=== PATIENT | male | born 1950 | race Caucasian/White ===

== ENCOUNTER 2021-10-09 09:33 | Outpatient (RCR) | payer MEDICARE, OTHER | END 2021-10-21 | disposition home or self-care (01) | LOC: ONC 09:33 | PROVIDERS: ATTEND Radiology Radiation Oncology | DX: C02.9 Malignant neoplasm of tongue, unspecified (principal) | CPT/HCPCS: 99204 ==

== ENCOUNTER 2022-06-02 06:10 | Outpatient (CLI) | payer MEDICARE, OTHER ==
[~2022-06-02] VITALS: Ht 193 cm; Wt 97.7 kg
[2022-06-03] MEDS ORDERED: ASCO100024 PO (09:22)
[2022-06-03] MEDS ORDERED: WARF-47 PO (09:22)
[2022-06-03] MEDS ORDERED: MULT-1009 PO (09:22)
[2022-06-03] MEDS ORDERED: TERA1CAP3 PO (09:22)
[2022-06-03] MEDS ORDERED: AMLO-251 PO (09:22)
[2022-06-03] MEDS ORDERED: CARV12.53 PO (09:22)
[2022-06-03] MEDS ORDERED: MELA3TAB39 PO (09:22)
[2022-06-03] MEDS ORDERED: ZINC220T3 PO (09:22)
[2022-06-03] MEDS ORDERED: ATOR40TA70 PO (09:22)
[2022-06-03] MEDS ORDERED: ACET-2267 PO (09:22)
[2022-06-03] MEDS ORDERED: PREG75CA75 PO (09:22)
== END 2022-06-03 09:24 | disposition home or self-care (01) ==
LOC: PREOP 06:10
PROVIDERS: ATTEND Specialist
DX: Z01.818 Encounter for other preprocedural examination (principal)

== ENCOUNTER 2022-06-06 11:56 | Day surgery (SDC) | payer MEDICARE, OTHER ==
[~2022-06-06] VITALS: Ht 193 cm; Wt 97.7 kg
[~2022-06-06 11:56] MED LIST: ACET-2267 PO; AMLO-251 PO; ASCO100024 PO; ATOR40TA70 PO; CARV12.53 PO; MELA3TAB39 PO; MULT-1009 PO; PREG75CA75 PO; TERA1CAP3 PO; WARF-47 PO; ZINC220T3 PO
[2022-06-06 12:15] VITALS: BP 137/86
[2022-06-06] MEDS ORDERED: POVIDONE (BETADINE) OPHTH SOLN 5% 30 ML OP ONE (12:30)
[2022-06-06] MEDS ORDERED: MOXIFLOXACIN OPHTH SOLN 5 MG/ML 0.3 ML SYRINGE OP ONE (12:30)
[2022-06-06] MEDS ORDERED: TIMOLOL MALEATE 0.5% 5 ML (TIMOPTIC) BTL OU PRN (12:30)
[2022-06-06] MEDS ORDERED: acetaZOLAMIDE ER 500 MG CAP (DIAMOX SEQUELS) PO ONE (12:30)
[2022-06-06] MEDS: TETRACAINE 0.5% OPHTH SOLN 4 ML BTL (SINGLE DOSE ONLY) OU PRN ×3 (12:32→12:50)
[2022-06-06] MEDS: TROPICAMIDE 1% OPH SOLN (MYDRIACYL) 15 ML BTL OP SCH ×3 (12:43→13:03)
[2022-06-06] MEDS: PHENYLEPHRINE 10% OPHTH (NEO-SYN) 5 ML BTL OU SCH ×3 (12:43→13:03)
[2022-06-06] MEDS ORDERED: MIDAZOLAM 2 MG/2 ML (VERSED) VIAL ONE (13:33)
--- NOTE | 2022-06-06 13:50 | Ophthalmologist Pre-Op Note ---
Pre-Operative Progress Note H&P Reviewed The H&P was reviewed, patient examined and no changes noted. Date H&P Reviewed: Jun 06, 2022 Time H&P Reviewed: 13:50 Pre-Op Dx Cataract, Left Eye JULIANA WASHBURN MD Jun 06, 2022 13:50
[2022-06-06] MEDS ORDERED: hydrALAZINE (APESOLINE) 20 MG/ML VIAL ONE (14:02)
[2022-06-06] MEDS ORDERED: ESMOLOL 100 MG/10 ML (BREVIBLOC) VIAL ONE (14:27)
--- NOTE | 2022-06-06 14:30 | Ophthalmology Operative Report ---
Cataract removal/placement IOL PREOPERATIVE DIAGNOSIS: 1. Mature Cataract Left Eye 2. Stain the anterior capsule with Vision Blue. POSTOPERATIVE DIAGNOSIS: 1. Mature Cataract Left Eye 2. Stain the anterior capsule with Vision Blue. PROCEDURE: 1. Cataract removal and placement of posterior chamber implant, left eye. 2. Stain the anterior capsule with Vision Blue. SURGEON: Farhad Washburn ANESTHESIA: Topical with sedation COMPLICATIONS: None ESTIMATED BLOOD LOSS: Minimal DESCRIPTION OF PROCEDURE: After proper informed consent was obtained, the patient, 72 male ,was taken to the Operating Room and the left eye was anesthetized with tetracaine. The left eye was then prepped and draped in the usual manner. A wire lid speculum was placed. A paracentesis was made at the left hand position. Preservative free lidocaine was injected into anterior chamber followed by viscoelastic. A clear corneal incision was made in the temporal position. The epithelium was debided. A capsulorrhexis was performed and the central nuclear and cortical material were removed. Vision blue was used to visualize capsule. The posterior capsule was polished and Dmitriy 21.0 AU00T0 IOL was placed into the capsular bag. The residual viscoelastic was aspirated and balanced saline solution was injected into the anterior chamber. Moxifloxacin was injected into the anterior chamber. The wound was checked and found to be water tight. The patient tolerated the procedure well without complications. FARHDA WASHBURN MD Jun 06, 2022 14:30
[2022-06-06 14:37] VITALS: BP 136/69
--- NOTE | 2022-06-06 14:45 | Anesthesia-General Post-Op ---
MAC Patient Condition Mental Status/LOC: Same as Preop Cardiovascular: Satisfactory Nausea/Vomiting: Absent Respiratory: Satisfactory Pain: Controlled Complications: Absent Post Op Complications Complications None Follow Up Care/Instructions Patient Instructions None needed. Anesthesiology Discharge Order Discharge Order Patient is doing well, no complaints, stable vital signs, no apparent adverse anesthesia problems. No complications reported per nursing. TRICIA RIVERA CRNA Jun 06, 2022 14:45
== END 2022-06-06 14:38 | disposition home or self-care (01) ==
LOC: SDC 11:56
PROVIDERS: ATTEND Specialist
DX: E11.36 Type 2 diabetes mellitus with diabetic cataract (principal); H25.89 Other age-related cataract; Z87.891 Personal history of nicotine dependence; Z85.810 Personal history of malignant neoplasm of tongue; Z79.01 Long term (current) use of anticoagulants
CPT/HCPCS: 66984; V2632

== ENCOUNTER → 2022-07-28 | Outpatient (CLI) | payer MEDICARE, OTHER ==
--- NOTE | 2022-07-29 15:27 | Diagnostic Imaging Report ---
EXAMINATION: PET/CT INDICATION: Carcinoma of the tongue TECHNIQUE: PET/CT imaging was obtained from the base of the skull through the pelvis after the administration of 13.96 mCi of F-18 fluorodeoxyglucose into the right antecubital fossa. Limited CT imaging was utilized for localization and attenuation correction purposes. The low energy CT utilized for attenuation correction is not considered to be of high enough spatial resolution to allow in and of itself a separate anatomical analysis. Height: 6' 4". Weight: 210. Blood Glucose: 87 The previous PET/CT exams performed at [facility] in [place], [place] on 01/07/2022 and 08/08/2021 were reviewed. The 08/08/2021 exam did note intensely FDG avid right lateral tongue nodular uptake. This was felt to be suspicious for neoplastic disease. The subsequent PET/CT exam performed on 01/07/2022 failed to show any hypermetabolic activity along the right lateral aspect of the tongue. On this exam, there is still no abnormal soft tissue hypermetabolic metabolic activity in this region . However, there is a tiny focus of hypermetabolic activity within the mandible just to the right of midline (axial image 70). This has a maximum SUV of 6.8. I doubt that this area of hyper metabolic activity is related to neoplastic disease, but that possibility cannot be entirely excluded. There is no other hypermetabolic activity involving the neck to suggest malignancy. The small focus of slightly increased hypermetabolic activity in the right lobe of the thyroid seen on the previous exams is again evident and not significantly changed in size. This area has a maximum SUV of 3.82. The 08/08/2021 exam did note a 3 cm lobulated consolidated opacity in the right upper lobe with lcjy-iy-lpdpktsy radiotracer uptake. This finding appeared stable on the subsequent 01/07/2022 exam. 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 There are now fiducial markers within the soft tissue density in the right upper lobe. The maximum SUV uptake in this area is 4.82. There is no other hypermetabolic activity in the neck chest abdomen or pelvis to suggest the presence of malignancy. Physiologic activity is again seen in the kidneys, bowel and bladder as well as the brain. The CT images failed to show any sign of an acute abnormality. The 4.5 cm aneurysm of the infrarenal abdominal aorta noted previously is again evident and no different. Images of the lower extremity were also performed for this study. There are no prior exams available for comparison. There has been an ebzhp-jpm-bgsj amputation on the left. There is a small area of slightly increased uptake in the soft tissues of the distal-most portion of the remaining left thigh. This may be a sequela of prior surgery. There is no other hypermetabolic activity to suggest the presence of malignancy. IMPRESSION: 1. There is no evidence for any abnormal soft tissue uptake involving the right tongue to suggest recurrent malignancy. The tiny focus of hypermetabolic activity in the right mandible is unlikely to be due to neoplastic disease but that possibility should still be considered. 2. There are now fiducial markers in the abnormal parenchymal density in the right upper lung. Most likely this corresponds to the patient's recent diagnosis of adenocarcinoma. There is hypermetabolic activity in this area consistent with neoplastic disease. 4. There is no other hypermetabolic activity to suggest the presence of malignancy. 5. There is no acute abnormality identified. 6. There has been an nldon-uru-mgpi amputation of the left lower extremity. There is no hypermetabolic activity in this area to suggest malignancy. However. If previous studies are available, they would be helpful for comparison. Dictated by: Dictated on workstation # [id number]
== END ==
LOC: RAD 09:59
PROVIDERS: ATTEND Internal Medicine Hematology & Oncology
DX: C34.11 Malignant neoplasm of upper lobe, right bronchus or lung (principal); Z98.890 Other specified postprocedural states
CPT/HCPCS: 78816; A9552

== ENCOUNTER 2022-08-18 08:14 | Outpatient (RCR) | payer MEDICARE, OTHER | END 2022-08-20 | disposition home or self-care (01) | LOC: ONC 08:14 | PROVIDERS: ATTEND Internal Medicine Hematology & Oncology | DX: C34.11 Malignant neoplasm of upper lobe, right bronchus or lung (principal) | CPT/HCPCS: 77293; 77300; 77301; 77334; 77338; 77373; 77470; 99204; 99213; 99215 ==

== ENCOUNTER 2022-09-01 09:51 | Outpatient (RCR) | payer MEDICARE, OTHER | END 2022-09-20 | disposition home or self-care (01) | LOC: ONC 09:51 | PROVIDERS: ATTEND Internal Medicine Hematology & Oncology | DX: Z51.0 Encounter for antineoplastic radiation therapy (principal); C34.90 Malignant neoplasm of unspecified part of unspecified bronchus or lung | CPT/HCPCS: 77373; G0463; 77336 ==

== ENCOUNTER → 2022-10-21 | Outpatient (RCR) | payer MEDICARE, OTHER | END | disposition home or self-care (01) | LOC: ONC 10-16 10:01 | PROVIDERS: ATTEND Internal Medicine Hematology & Oncology | DX: C34.90 Malignant neoplasm of unspecified part of unspecified bronchus or lung (principal) | CPT/HCPCS: 99213 ==

== ENCOUNTER → 2022-10-24 | Outpatient (CLI) | payer MEDICARE, OTHER ==
[~2022-10-24] MED LIST changes: +HOLD METFORMIN - RECEIVED CONTRAST 20 ML VIAL IV SCH; +IOHEXOL 350 MG/ML 100 ML (OMNIPAQUE 350) VIAL IV ONE; +NS 100 ML (IVPB) BAG IV ONE
[2022-10-24 10:33] LABS: CREATININE SERUM 1.93 MG/DL (0.60-1.30)
--- NOTE | 2022-10-24 12:24 | Diagnostic Imaging Report ---
PROCEDURE: CT chest, abdomen, and pelvis with contrast. TECHNIQUE: Multiple contiguous axial images were obtained through the chest, abdomen, and pelvis after the administration of intravenous contrast. Auto Exposure Controls were utilized during the CT exam to meet ALARA standards for radiation dose reduction. INDICATION: Tongue carcinoma, follow-up. FINDINGS: CT CHEST: There is an 11 mm nodule in the right lobe of the thyroid gland. No axillary lymphadenopathy is detected. No mediastinal or hilar lymphadenopathy is identified. The heart is enlarged. There is no pericardial or pleural fluid detected. Soft tissue density in the right lung apex medially containing fiducial markers is similar in appearance to prior PET/CT study from July 2022. This measures approximately 2.5 x 2.0 cm compared with 2.8 x 1.9 cm on prior. No other pulmonary parenchymal abnormalities are seen. CT ABDOMEN AND PELVIS: No focal liver mass is identified. Gallbladder is unremarkable. There is no biliary ductal dilatation. Pancreas and spleen are unremarkable. No adrenal mass is identified. There is a 17 mm low-attenuation lesion in the upper pole of the left kidney, suggestive of a cyst. Right kidney does demonstrate a moderate amount of perinephric inflammatory stranding. There is some stranding surrounding the proximal right ureter as well. Infectious/inflammatory process cannot be excluded. The aorta is aneurysmal in the infrarenal region measuring 4.5 cm. This terminates right before the bifurcation. There is a moderate amount of mural thrombus present. There also appears to be a short segment dissection in the infrarenal portion of the aorta. No perianeurysmal fluid collection is seen. Iliacs are heavily calcified. Bowel loops are nonobstructed. There is diverticulosis of the descending and sigmoid colon but no evidence of acute diverticulitis. The bladder and prostate are unremarkable. IMPRESSION: 1. Stable right upper lobe mass-like density with fiducial markers when compared with prior PET/CT from 07/28/2022. No thoracic lymphadenopathy is detected. 2. No abdominal or pelvic lymphadenopathy or evidence of metastatic disease is detected. 3. Infrarenal abdominal aortic aneurysm. There is a short segment dissection in the infrarenal abdominal aorta. 4. Uncomplicated diverticulosis. 5. Right perinephric and periureteral inflammatory stranding, perhaps owing to urinary tract infection. There is no hydronephrosis. Dictated by: Dictated on workstation # [id number]
== END ==
LOC: RAD 09:41
PROVIDERS: ATTEND Internal Medicine Hematology & Oncology
DX: C34.90 Malignant neoplasm of unspecified part of unspecified bronchus or lung (principal); C02.9 Malignant neoplasm of tongue, unspecified; I71.43 Infrarenal abdominal aortic aneurysm, without rupture; K57.90 Diverticulosis of intestine, part unspecified, without perforation or abscess without bleeding
CPT/HCPCS: 71260; 74177; 82565; 84520

== ENCOUNTER 2022-11-25 09:53 | Outpatient (RCR) | payer MEDICARE, OTHER ==
[~2022-11-25 09:53] MED LIST changes: -HOLD METFORMIN - RECEIVED CONTRAST 20 ML VIAL IV SCH; -IOHEXOL 350 MG/ML 100 ML (OMNIPAQUE 350) VIAL IV ONE; -NS 100 ML (IVPB) BAG IV ONE
== END 2022-12-19 | disposition home or self-care (01) ==
LOC: ONC 09:53
PROVIDERS: ATTEND Internal Medicine Hematology & Oncology
DX: C34.90 Malignant neoplasm of unspecified part of unspecified bronchus or lung (principal)

== ENCOUNTER → 2022-12-22 | Outpatient (CLI) | payer MEDICARE, OTHER ==
--- NOTE | 2022-12-22 15:16 | Diagnostic Imaging Report ---
PET/CT INDICATION: Lung cancer. EXAMINATION: After intravenous administration of 9.86 mCi of F18-FDG injected into the left antecubital fossa, a series of overlapping emission and transmission PET images was obtained. In the coronal, transaxial and sagittal planes, the area imaged extended from the skull base through the upper thighs. Patient height 64 inches. Weight 210 pounds. Blood glucose 104 The previous PET/CT exam performed on 07/28/2022 noted a roughly 3 cm mass in the right upper lobe. This was felt to be related to the patient's diagnosis of adenocarcinoma of the right lung. The maximum SUV measurement in this area was 4.8. This mass did seem smaller on the recent CT chest, abdomen and pelvis exam of 10/24/2022 when it measured 2 x 2.5 cm. On this study, the mass is again evident and continues to decrease in size. The mass now measures 2.3 x 2.0 cm. There is also less hypermetabolic activity associated with this finding and the maximum SUV is only 3.0. There is no other hypermetabolic activity to suggest the presence of malignancy. The previous study did note hypermetabolic activity within the mandible just to the right of midline. The maximum SUV in this area was 6.8. On this study, there is no hypermetabolic activity in this region to suggest malignancy. Physiologic activity is again seen in the heart, kidneys, bowel and bladder. The CT images failed to show any sign of an acute abnormality. The 4.5 cm infrarenal aneurysm of the abdominal aorta seen previously is again evident and no different. Diverticulosis of the sigmoid and descending colon is also again seen but there is no evidence for acute diverticulitis. IMPRESSION: 1. The mass in the right suprahilar region seen previously has decreased in size and hypermetabolic activity. 2. There is no other hypermetabolic activity seen to suggest the presence of malignancy. 3. There is no acute abnormality identified either. 4. The infrarenal aneurysm of the abdominal aorta seen previously appears stable. Dictated by: Dictated on workstation # [id number]
== END ==
LOC: RAD 09:03
PROVIDERS: ATTEND Internal Medicine Hematology & Oncology
DX: C34.91 Malignant neoplasm of unspecified part of right bronchus or lung (principal); I71.43 Infrarenal abdominal aortic aneurysm, without rupture
CPT/HCPCS: 78815; 82947; A9552

== ENCOUNTER 2023-01-27 09:21 | Outpatient (RCR) | payer MEDICARE, OTHER ==
[2023-01-27 09:44] LABS: HEMOGLOBIN 15.9 g/dL (13.3-17.7); MEAN PLATELET VOLUME 11.3 fL (9.0-12.2)
[2023-01-27 09:45] LABS: BASOPHILS % (AUTO) 1 % (0-10); EOSINOPHILS # (AUTO) 0.2 10^3/uL (0.0-0.3); EOSINOPHILS % (AUTO) 3 % (0-10); HEMATOCRIT 43 % (40-54); LYMPHOCYTES # (AUTO) 1.5 10^3/uL (1.0-4.0); LYMPHOCYTES % (AUTO) 19 % (12-44); MEAN CORPUSCULAR HEMOGLOBIN 33 pg (25-34); MEAN CORPUSCULAR HGB CONC 37 g/dL (32-36); MEAN CORPUSCULAR VOLUME 88 fL (80-99); MONOCYTES # (AUTO) 0.5 10^3/uL (0.0-1.0); MONOCYTES % (AUTO) 6 % (0-12); NEUTROPHILS # (AUTO) 5.4 10^3/uL (1.8-7.8); NEUTROPHILS % (AUTO) 71 % (42-75); PLATELET COUNT 115 10^3/uL (130-400); WHITE BLOOD COUNT 7.6 10^3/uL (4.3-11.0)
[2023-01-27 10:12] LABS: ALBUMIN 3.3 GM/DL (3.2-4.5); BILIRUBIN,TOTAL 0.9 MG/DL (0.1-1.0); CALCIUM 8.8 MG/DL (8.5-10.1); CREATININE SERUM 1.95 MG/DL (0.60-1.30); POTASSIUM 3.8 MMOL/L (3.6-5.0); TOTAL PROTEIN 6.3 GM/DL (6.4-8.2)
== END 2023-02-18 | disposition home or self-care (01) ==
LOC: ONC 09:21
PROVIDERS: ATTEND Internal Medicine Hematology & Oncology
DX: C34.90 Malignant neoplasm of unspecified part of unspecified bronchus or lung (principal)
CPT/HCPCS: 36415; 80053; 85025

== ENCOUNTER → 2023-02-17 | Outpatient (CLI) | payer MEDICARE, OTHER ==
[~2023-02-17] MED LIST changes: +HOLD METFORMIN - RECEIVED CONTRAST 20 ML VIAL IV SCH; +IOHEXOL 350 MG/ML 100 ML (OMNIPAQUE 350) VIAL IV ONE; +NS 100 ML (IVPB) BAG IV ONE
--- NOTE | 2023-02-17 11:03 | Diagnostic Imaging Report ---
EXAMINATION: CT chest, abdomen and pelvis with intravenous contrast. TECHNIQUE: Multiple contiguous axial images were obtained through the chest, abdomen and pelvis after the uneventful administration of intravenous contrast. All CT scans use one or more of the following dose optimizing techniques: automated exposure control, MA and/or KvP adjustment based on patient size and exam type or iterative reconstruction. HISTORY: Lung cancer COMPARISON: 12/22/2022 FINDINGS: There is no edema or pneumonia. There is a small right pleural effusion. No pneumothorax. The right upper lobe nodule measures 1.2 x 1.6 cm, previously 1.2 x 1.6 cm. There are associated fiducial markers. There is adjacent linear opacities suggestive of radiation changes. No new pulmonary nodule. There is no axillary or supraclavicular lymphadenopathy. There is no mediastinal lymphadenopathy. There is a filling defect in the left atrial appendage. The left atrium is dilated. The right atrium is dilated. There are severe coronary artery calcifications. No pericardial effusion. Aorta is normal in caliber. The liver is normal without focal lesion. There is no biliary ductal dilation. Gallbladder is normal. Pancreas is normal. Spleen is normal. Adrenal glands are normal. There is severe stenosis of the right renal artery with a delayed right nephrogram and relative atrophy of the right kidney compared to the left. There is a cyst in left kidney. There is no hydronephrosis. Urinary bladder is normal. Bowel is normal in caliber without obstruction or inflammation. There is diverticulosis without diverticulitis. No free fluid or air. No abdominal or pelvic lymphadenopathy. There is a 4.5 x 4.6 cm abdominal aortic aneurysm, unchanged. There is increasing mural thrombus within the aneurysm compared to prior CT. There are no suspicious osseus lesions. IMPRESSION: 1. Unchanged right upper lobe nodule with a small right pleural effusion. No metastatic disease is seen. 2. Severe stenosis of the right renal artery with a delayed right nephrogram and atrophy of the right kidney. 3. Unchanged size of an infrarenal abdominal aortic aneurysm with increasing mural thrombus. Dictated by: Dictated on workstation # [id number]
== END ==
LOC: RAD 09:55
PROVIDERS: ATTEND Internal Medicine Hematology & Oncology
DX: J90 Pleural effusion, not elsewhere classified (principal); I70.1 Atherosclerosis of renal artery; I71.40 Abdominal aortic aneurysm, without rupture, unspecified; I51.3 Intracardiac thrombosis, not elsewhere classified; R91.1 Solitary pulmonary nodule; C34.90 Malignant neoplasm of unspecified part of unspecified bronchus or lung
CPT/HCPCS: 71260; 74177

== ENCOUNTER 2023-04-21 09:26 | Outpatient (RCR) | payer MEDICARE, OTHER ==
[~2023-04-21 09:26] MED LIST changes: -HOLD METFORMIN - RECEIVED CONTRAST 20 ML VIAL IV SCH; -IOHEXOL 350 MG/ML 100 ML (OMNIPAQUE 350) VIAL IV ONE; -NS 100 ML (IVPB) BAG IV ONE
[2023-04-21 10:04] LABS: BASOPHILS # (AUTO) 0.1 10^3/uL (0.0-0.1); BASOPHILS % (AUTO) 1 % (0-10); MEAN CORPUSCULAR VOLUME 93 fL (80-99)
[2023-04-21 10:05] LABS: EOSINOPHILS # (AUTO) 0.2 10^3/uL (0.0-0.3); EOSINOPHILS % (AUTO) 3 % (0-10); HEMATOCRIT 46 % (40-54); HEMOGLOBIN 16.3 g/dL (13.3-17.7); LYMPHOCYTES # (AUTO) 1.5 10^3/uL (1.0-4.0); LYMPHOCYTES % (AUTO) 20 % (12-44); MEAN CORPUSCULAR HEMOGLOBIN 33 pg (25-34); MEAN CORPUSCULAR HGB CONC 35 g/dL (32-36); MEAN PLATELET VOLUME 11.1 fL (9.0-12.2); MONOCYTES # (AUTO) 0.4 10^3/uL (0.0-1.0); MONOCYTES % (AUTO) 6 % (0-12); NEUTROPHILS # (AUTO) 5.3 10^3/uL (1.8-7.8); NEUTROPHILS % (AUTO) 70 % (42-75); PLATELET COUNT 118 10^3/uL (130-400); WHITE BLOOD COUNT 7.5 10^3/uL (4.3-11.0)
[2023-04-21 10:26] LABS: ALBUMIN 3.4 GM/DL (3.2-4.5); CALCIUM 9.2 MG/DL (8.5-10.1); CREATININE SERUM 2.05 MG/DL (0.60-1.30); POTASSIUM 4.7 MMOL/L (3.6-5.0); TOTAL PROTEIN 6.5 GM/DL (6.4-8.2)
== END 2023-05-21 | disposition home or self-care (01) ==
LOC: ONC 09:26
PROVIDERS: ATTEND Internal Medicine Hematology & Oncology
DX: C34.90 Malignant neoplasm of unspecified part of unspecified bronchus or lung (principal)
CPT/HCPCS: 80053; 85025; G0463; 36415; 99214

== ENCOUNTER → 2023-04-27 | Outpatient (CLI) | payer MEDICARE, OTHER ==
[2023-04-27 10:25] LABS: CREATININE SERUM 2.16 MG/DL (0.60-1.30)
--- NOTE | 2023-04-27 13:52 | Diagnostic Imaging Report ---
PROCEDURE: CT chest, abdomen, and pelvis without contrast. TECHNIQUE: Multiple contiguous axial images were obtained through the chest, abdomen, and pelvis without the use of intravenous contrast. Auto Exposure Controls were utilized during the CT exam to meet ALARA standards for radiation dose reduction. INDICATION: History of tongue cancer and lung cancer. Followup. COMPARISON: 02/17/2023. 12/22/2022. CT chest: The heart size is within normal limits. No pericardial effusion is present. There is calcified aortic and coronary atherosclerotic plaque without aneurysm. There is no mediastinal, hilar, or axillary lymphadenopathy. The consolidative opacities in the medial aspect of the right upper lobe have increased since the prior exam measuring 3.0 x 2.1 cm on today's exam, previously measuring 2.4 x 2.2 cm. The remainder of the lungs are clear. No central endobronchial obstructing lesions. No pleural effusion or pneumothorax. No acute osseous abnormalities. CT abdomen and pelvis: Bilateral perinephric fat stranding is seen, similar to the prior exam. No evidence of obstructing calculi or hydronephrosis. The urinary bladder is unremarkable. The liver, spleen, pancreas, and adrenal glands have a normal noncontrast CT appearance. The gallbladder is unremarkable. There is no pathologically enlarged mesenteric or retroperitoneal adenopathy. The bowel loops are nondilated. The appendix is visualized in the right lower quadrant and has a normal appearance. Diverticula are scattered in the sigmoid colon without evidence of acute diverticulitis.. There is no free fluid or free air. No acute osseous abnormalities. There is calcified aortic atherosclerotic plaque. Aneurysmal dilation of the infrarenal abdominal aortic is seen measuring 4.4 x 4.2 cm. There is no free air, loculated collection, or adenopathy in the pelvis. IMPRESSION: 1. Increase in size in the consolidative opacities in the right upper lobe measuring up to 3.0 cm on today's exam. Findings may represent disease progression versus increasing associated atelectasis. Recommend continued attention on followup. 2. No findings to suggest metastatic disease in the abdomen and pelvis. 3. Stable appearance of the infrarenal abdominal aortic aneurysm. Dictated by: Dictated on workstation # [id number]
== END ==
LOC: RAD 09:57
PROVIDERS: ATTEND Internal Medicine Hematology & Oncology
DX: C34.90 Malignant neoplasm of unspecified part of unspecified bronchus or lung (principal); I71.43 Infrarenal abdominal aortic aneurysm, without rupture; Z85.810 Personal history of malignant neoplasm of tongue
CPT/HCPCS: 36415; 71250; 74176; 82565; 84520

== ENCOUNTER → 2023-07-29 | Outpatient (CLI) | payer MEDICARE, OTHER ==
[~2023-07-29] MED LIST changes: -PREG75CA75 PO; +PREG75CA76 PO
[2023-07-29 08:53] LABS: CREATININE SERUM 2.24 MG/DL (0.60-1.30)
--- NOTE | 2023-07-29 10:48 | Diagnostic Imaging Report ---
PROCEDURE: CT chest, abdomen, and pelvis without contrast. TECHNIQUE: Multiple contiguous axial images were obtained through the chest, abdomen, and pelvis without the use of intravenous contrast. Auto Exposure Controls were utilized during the CT exam to meet ALARA standards for radiation dose reduction. INDICATION: Malignant neoplasm of the lung, follow-up. COMPARISON: Correlation is made with prior CT from 04/27/2023. FINDINGS: CT CHEST: No axillary lymphadenopathy is detected. No definite mediastinal or hilar lymphadenopathy is identified. No pericardial or pleural fluid is detected. Previously noted consolidative opacity in the right upper lobe medially appears similar to prior exam. There is a small nodule in the right apex as well which appears stable at approximately 6 mm. A small nodule just lateral to the area of consolidation in the right upper lobe does appear to be slightly larger at 7 mm compared with 4 mm. No new parenchymal opacities are identified. CT ABDOMEN AND PELVIS: No focal liver mass is detected. Gallbladder is unremarkable. There is no biliary ductal dilatation. Pancreas and spleen are unremarkable. No adrenal mass is detected. Kidneys appear stable. Small low-attenuation lesion in the upper pole of the left kidney is stable and consistent with a cyst. No definite calculi or hydronephrosis is identified. Perinephric stranding, greater on the right, appears similar to prior exam. Infrarenal abdominal aortic aneurysm is stable at 4.5 cm. No central retroperitoneal or mesenteric lymphadenopathy is detected. Small and large bowel loops are normal in caliber. There is no obstruction. There is diverticulosis of the sigmoid but no evidence of acute diverticulitis. There is no ascites. No pelvic lymphadenopathy is detected. The bladder and prostate are unremarkable. IMPRESSION: 1. Stable consolidative opacity in the medial right upper lobe when compared with prior study from April. There is a slightly enlarging nodule just lateral to the area of consolidation in the right upper lobe and continued follow-up is suggested. 2. Stable CT of the abdomen and pelvis with stable infrarenal abdominal aortic aneurysm. No abdominal or pelvic lymphadenopathy or metastatic disease is detected. Dictated by: Dictated on workstation # [id number]
== END ==
LOC: RAD 08:18
PROVIDERS: ATTEND Internal Medicine Hematology & Oncology
DX: C34.90 Malignant neoplasm of unspecified part of unspecified bronchus or lung (principal)
CPT/HCPCS: 36415; 71250; 74176; 82565; 84520

== ENCOUNTER 2023-08-11 10:51 | Outpatient (RCR) | payer MEDICARE, OTHER ==
[2023-08-11 11:19] LABS: BASOPHILS % (AUTO) 1 % (0-10); EOSINOPHILS # (AUTO) 0.3 10^3/uL (0.0-0.3); HEMOGLOBIN 16.7 g/dL (13.3-17.7); MEAN PLATELET VOLUME 11.5 fL (9.0-12.2); MONOCYTES # (AUTO) 0.5 10^3/uL (0.0-1.0)
[2023-08-11 11:21] LABS: EOSINOPHILS % (AUTO) 3 % (0-10); HEMATOCRIT 47 % (40-54); LYMPHOCYTES # (AUTO) 1.7 10^3/uL (1.0-4.0); LYMPHOCYTES % (AUTO) 22 % (12-44); MEAN CORPUSCULAR HEMOGLOBIN 33 pg (25-34); MEAN CORPUSCULAR HGB CONC 35 g/dL (32-36); MEAN CORPUSCULAR VOLUME 94 fL (80-99); MONOCYTES % (AUTO) 6 % (0-12); NEUTROPHILS # (AUTO) 5.1 10^3/uL (1.8-7.8); NEUTROPHILS % (AUTO) 67 % (42-75); PLATELET COUNT 113 10^3/uL (130-400); WHITE BLOOD COUNT 7.6 10^3/uL (4.3-11.0)
[2023-08-11 11:39] LABS: ALBUMIN 3.6 GM/DL (3.2-4.5); BILIRUBIN,TOTAL 0.8 MG/DL (0.1-1.0); CALCIUM 9.4 MG/DL (8.5-10.1); CREATININE SERUM 2.16 MG/DL (0.60-1.30); POTASSIUM 4.8 MMOL/L (3.6-5.0); TOTAL PROTEIN 6.7 GM/DL (6.4-8.2)
== END 2023-08-20 | disposition home or self-care (01) ==
LOC: ONC 10:51
PROVIDERS: ATTEND Internal Medicine Hematology & Oncology
DX: C34.90 Malignant neoplasm of unspecified part of unspecified bronchus or lung (principal)
CPT/HCPCS: 80053; 85025; G0463; 36415; 99214